=== PATIENT | male | born 1950 | race Caucasian/White ===

== ENCOUNTER → 2018-07-15 | Outpatient (CLI) | payer MEDICARE, MEDICAID ==
[2018-07-15 17:13] LABS: EOS # 0.2 (0.04-0.40); EOS % 1.8 % (0.0-4.0); HEMATOCRIT 38.2 % (42.0-52.0); HEMOGLOBIN 12.4 g/dL (13.5-18.0); LYMPH# 2.5 (1.50-4.00); MEAN CELL VOLUME 94 fl (78-100); MEAN CORPUSCULAR HEMOGLOBIN 31 pg (27-31); MEAN CORPUSCULAR HGB CONC 33 g/dL (33-37); MEAN PLATELET VOLUME 10.1 fl (7.4-10.4); MONO # 0.9 (0.20-0.80); NEU # 5.5 (1.40-6.50); PLATELET COUNT 154 K/mm3 (130-400); RED BLOOD COUNT 4.07 M/mm3 (4.20-5.60); RED CELL DISTRIBUTION WIDTH 15.1 % (11.5-14.5); WHITE BLOOD COUNT 9.1 K/mm3 (4.8-10.8)
[2018-07-15 17:30] LABS: ALBUMIN 3.5 g/dL (3.5-5.0); CALCIUM 8.5 mg/dL (8.4-10.2); POTASSIUM 3.8 mmol/L (3.6-5.0); TOTAL BILIRUBIN 0.6 mg/dL (0.2-1.3); TOTAL PROTEIN 5.9 g/dL (6.3-8.2)
== END ==
LOC: LAB 16:53
PROVIDERS: Internal Medicine
DX: E03.9 Hypothyroidism, unspecified (principal); E10.9 Type 1 diabetes mellitus without complications

== ENCOUNTER → 2018-09-10 | Outpatient (CLI) | payer MEDICARE, MEDICAID | LOC: LAB 16:26 | DX: E63.9 Nutritional deficiency, unspecified (principal); I25.10 Atherosclerotic heart disease of native coronary artery without angina pectoris ==

== ENCOUNTER → 2018-12-14 | Outpatient (CLI) | payer MEDICARE, MEDICAID ==
[2018-12-14 11:42] LABS: URINE APPEARANCE CLEAR; URINE BILIRUBIN NEGATIVE (NEGATIVE); URINE BLOOD TRACE (NEGATIVE); URINE COLOR YELLOW; URINE GLUCOSE NEGATIVE (NEGATIVE); URINE KETONE NEGATIVE (NEGATIVE); URINE LEUKOCYTE ESTERASE TRACE (NEGATIVE); URINE NITRATE NEGATIVE (NEGATIVE); URINE PROTEIN(semi-quant) NEGATIVE (NEGATIVE); URINE UROBILINOGEN NORMAL (NORMAL); URINE WBC 16-30 /hpf (0-3)
== END ==
LOC: LAB 09:40
PROVIDERS: Internal Medicine
DX: R82.90 Unspecified abnormal findings in urine (principal); R29.2 Abnormal reflex

== ENCOUNTER → 2019-01-10 | Outpatient (CLI) | payer MEDICARE, MEDICAID | LOC: RAD 15:28 | DX: M17.12 Unilateral primary osteoarthritis, left knee (principal) ==